=== PATIENT | female | born 1980 | race African-American/Black ===

== ENCOUNTER 2017-11-14 20:03 | Emergency (ER) | payer SELFPAY ==
[~2017-11-14] VITALS: Ht 165.1 cm; Wt 97.5 kg
[2017-11-14] MEDS ORDERED: NAPROXEN 500 MG TABLET PO STA (20:33)
[2017-11-14 20:34] VITALS: BP 152/90
[2017-11-14] MEDS ORDERED: HYDROcodone/APAP 5/325MG 1 TAB TABLET PO ONE (20:45)
[2017-11-14] MEDS ORDERED: DICL50TA4 PO (21:10)
--- NOTE | 2017-11-14 21:10 | PHYS DOC ---
Past Medical History Past Medical History: No Pertinent History Past Surgical History: No Surgical History Alcohol Use: None Drug Use: None Adult General Chief Complaint Chief Complaint: WRIST PAIN HPI HPI Patient is a 37 year old female with no significant medical history who presents today complaining of 7 out of 10 intermittent throbbing left wrist pain that began today while breaking ridding her bike. Denies any fall. Review of Systems Review of Systems Constitutional: Denies fever or chills [] Musculoskeletal: Reports left wrist pain Integument: Denies rash or skin lesions [] Neurologic: Denies headache, focal weakness or sensory changes [] All other systems were reviewed and found to be within normal limits, except as documented in this note. Current Medications Current Medications Current Medications Medications (Trade) Dose Ordered Sig/Verónica Start Time Stop Time Status Last Admin Dose Admin Acetaminophen/ Hydrocodone Bitart (Lortab 5/325) 2 tab 1X ONCE 11/14/17 20:45 11/14/17 20:46 DC 11/14/17 20:44 2 TAB Naproxen (Naprosyn) 500 mg 1X STAT 11/14/17 20:33 11/14/17 20:37 DC 11/14/17 20:43 500 MG Allergies Allergies Allergies Coded Allergies Type Severity Reaction Last Updated Verified No Known Drug Allergies 11/14/17 No Physical Exam Physical Exam Constitutional: Well developed, well nourished, no acute distress, non-toxic appearance. [] Skin: Warm, dry, no erythema, no rash. [] Back: No tenderness, no CVA tenderness. [] Extremities: Left wrist with no obvious deformity. Diffuse tenderness throughout the wrist, no scaphoid tenderness. Full range of motion to the left wrist and fingers. Adequate radial medial and ulnar sensation to the left upper extremity. +2 left radial pulse. Cap refill less than 2 seconds the left fingers. Neurologic: Alert and oriented X 3, normal motor function, normal sensory function, no focal deficits noted. [] Psychologic: Affect normal, judgement normal, mood normal. [] Current Patient Data Vital Signs Vital Signs Date Time Temp Pulse Resp B/P (MAP) Pulse Ox O2 Delivery O2 Flow Rate FiO2 11/14/17 20:34 98.2 77 18 152/90 (110) 100 Room Air 98.2 EKG EKG [] Radiology/Procedures Radiology/Procedures [] Course & Med Decision Making Course & Med Decision Making Pertinent Labs and Imaging studies reviewed. (See chart for details) Patient is in the ED with left wrist pain that began one riding her bike. Left wrist x-rays interpreted by Dr. Sanchez were negative for any acute findings.Patient was placed in a velcro splint by the ED RN ice elevation encouraged. Follow-up with orthopedic doctor in one week if symptoms continue. Diclofenac for pain. Dragon Disclaimer Dragon Disclaimer This electronic medical record was generated, in whole or in part, using a voice recognition dictation system. Departure Departure Impression: Primary Impression: Left wrist sprain Disposition: HOME, SELF-CARE Condition: STABLE Referrals: NO PCP (PCP) GEOVANI GUERRERO II, MD Follow-up in one week Patient Instructions: Wrist Sprain with [facility] Additional Instructions: You were seen with left wrist sprain. Ice elevate the extremity. Wear the provided Velcro splint as needed and tolerated. Follow-up with the orthopedic doctor in one week if symptoms continue. Take the prescribed medications as needed for pain. Scripts Diclofenac Sodium (DICLOFENAC SODIUM) 50 Mg Tablet.dr 1 TAB PO BID, #30 TAB 0 Refills Prov: RYLIE EDWARD APRN 11/14/17 Problem Qualifiers Primary Impression: Left wrist sprain Encounter type: initial encounter Qualified Codes: S63.502A - Unspecified sprain of left wrist, initial encounter RYLIE EDWARD APRN Nov 14, 2017 21:10
--- NOTE | 2017-11-15 00:07 | RAD ---
Three-view left wrist radiographs 11/14/2017 CLINICAL HISTORY: Injury to left wrist. Pain. PA, lateral and oblique digital radiographs of the left wrist were obtained. No fracture or dislocation of the left wrist is seen. No radiopaque foreign body is noted. IMPRESSION: No fracture or dislocation of the left wrist is seen. Electronically signed by: Jon Zhao MD (11/15/2017 12:03 AM) [facility]
== END 2017-11-14 21:20 | disposition home or self-care (01) ==
LOC: ER 20:03
DX: S63.502A Unspecified sprain of left wrist, initial encounter (principal); X58.XXXA Exposure to other specified factors, initial encounter; Y93.55 Activity, bike riding; Y92.89 Other specified places as the place of occurrence of the external cause; Y99.8 Other external cause status
CPT/HCPCS: 29125; 73110; 99284

== ENCOUNTER → 2017-12-11 | Outpatient (CLI) | payer MEDICARE, OTHER ==
[2017-11-14 20:34] VITALS: BP 152/90
[~2017-12-11] MED LIST: DICL50TA4 PO
--- NOTE | 2017-12-11 15:09 | KCIC ---
MR of the left wrist Indication: Acute left wrist pain, injury on November 17, pain medial and lateral. Comparison: None are available Technique: Standard multiplanar sequences are obtained. FINDINGS: Artifact: No significant image degradation Triangular fibrocartilage: Intact Distal radioulnar alignment: Intact Extensor carpi ulnaris tendon: Intact, no significant dislocation. Other extensor compartments: Intact Flexor tendons: Intact Median nerve: Unremarkable Scapholunate ligament: No evidence of tear Lunotriquetral ligament: No evidence of a tear. Carpal bone alignment: Within normal limits. Fluid: No significant effusion. Joints: No advanced DJD. Bones: No lesion or acute fracture Soft tissues: Unremarkable IMPRESSION: No evidence of internal derangement or acute abnormality. Electronically signed by: Ben Dumont MD (12/11/2017 3:07 PM) [facility]
== END | disposition home or self-care (01) ==
LOC: KCIC MRI 13:10
PROVIDERS: ATTEND Orthopaedic Surgery
DX: M25.532 Pain in left wrist (principal)
CPT/HCPCS: 73221

== ENCOUNTER 2018-07-21 20:13 | Emergency (ER) | payer MEDICARE, OTHER ==
[~2018-07-21] VITALS: Ht 165.1 cm; Wt 96.2 kg
[2018-07-21 20:31] VITALS: BP 139/88
[2018-07-21] MEDS ORDERED: DIPHTH,PERTUSS(ACELL),TET TOX 0.5 ML DISP.SYRIN. VAX IM ONE (22:00)
[2018-07-21] MEDS ORDERED: LIDOCAINE WITH 8.4% SOD BICARB 3 ML DISP.SYRIN. INJ ONE (22:00)
--- NOTE | 2018-07-21 22:32 | PHYS DOC ---
Past Medical History Past Medical History: No Pertinent History Past Surgical History: Hysterectomy Alcohol Use: None Drug Use: None Adult General Chief Complaint Chief Complaint: LACERATION/AVULSION HPI HPI Patient is a 38 year old female who presents with left hand laceration, patient is right-handed was cutting chicken when she cut himself. Review of Systems Review of Systems Constitutional: Denies fever or chills [] Musculoskeletal: Denies back pain or joint pain [] Integument: Reports left hand laceration Neurologic: Denies headache, focal weakness or sensory changes [] All other systems were reviewed and found to be within normal limits, except as documented in this note. Current Medications Current Medications Current Medications Medications (Trade) Dose Ordered Sig/Verónica Start Time Stop Time Status Last Admin Dose Admin Diphtheria/ Tetanus/Acell Pertussis (Boostrix) 0.5 ml ONCE ONCE 07/21/18 22:00 07/21/18 22:01 DC 07/21/18 21:55 0.5 ML Lidocaine/Sodium Bicarbonate (Buffered Lidocaine 1%) 3 ml 1X ONCE 07/21/18 22:00 07/21/18 22:01 DC 07/21/18 21:57 3 ML Allergies Allergies Allergies Coded Allergies Type Severity Reaction Last Updated Verified No Known Drug Allergies 11/14/17 No Physical Exam Physical Exam Constitutional: Well developed, well nourished, no acute distress, non-toxic appearance. [] Skin: Webspace between the index finger and thumb with a laceration appr oximately 2 cm long. There is no obvious tendon involvement. Full range of motion to the left hand and fingers. Adequate radial, medial, ulnar sensation to the left hand. +2 left radial pulse. Cap refill less than 2 seconds the left fingers. Back: No tenderness, no CVA tenderness. [] Extremities: No tenderness, no cyanosis, no clubbing, ROM intact, no edema. [] Neurologic: Alert and oriented X 3, normal motor function, normal sensory function, no focal deficits noted. [] Psychologic: Affect normal, judgement normal, mood normal. [] Current Patient Data Vital Signs Vital Signs Date Time Temp Pulse Resp B/P (MAP) Pulse Ox O2 Delivery O2 Flow Rate FiO2 07/21/18 20:31 98.8 84 16 139/88 (105) 100 Room Air 98.8 EKG EKG [] Radiology/Procedures Radiology/Procedures Laceration/Wound Repair Wound Location: Left hand Wound's Depth, Shape: Vertical Wound Length (cm): Approximately 2 cm Wound Explored: clean Irrigated w/ Saline (ccs): 250 Betadine Prep?: Yes Anesthesia: 1% buffered lidocaine Volume Anesthetic (ccs): 3 mL Wound Repaired With: Vicryl Suture Size/Type: 4.0/interrupted sutures Number of Sutures: 4 Progress : Wound was covered with Nonstick dressing Course & Med Decision Making Course & Med Decision Making Pertinent Labs and Imaging studies reviewed. (See chart for details) This is a 38-year-old female patient presenting to the ED today with left hand laceration that was closed by me as noted in procedures. Wound care instructions and return precautions. Tetanus updated Dragon Disclaimer Dragon Disclaimer This electronic medical record was generated, in whole or in part, using a voice recognition dictation system. Departure Departure Impression: Primary Impression: Laceration of left hand Disposition: HOME, SELF-CARE Condition: STABLE Referrals: NO PCP (PCP) Follow-up with your doctor in 1-2 weeks as needed Patient Instructions: Laceration Care, Adult Additional Instructions: You have left hand laceration that was closed with dissolvable sutures, they will follow from there on. You can wash her hands starting tomorrow. Apply Jean sporin to the area twice a day. You can take [id number] pain relievers as needed. Monitor the area for any signs of infection including but not limited to increased redness, warmth, yellow drainage from the area and return to the ED if they occur otherwise follow-up with your own doctor as needed. Problem Qualifiers Primary Impression: Laceration of left hand Encounter type: initial encounter Foreign body presence: without foreign body Qualified Codes: S61.412A - Laceration without foreign body of left hand, initial encounter RYLIE EDWARD [employer] Jul 21, 2018 22:32
== END 2018-07-21 22:45 | disposition home or self-care (01) ==
LOC: ER 20:13
DX: S61.412A Laceration without foreign body of left hand, initial encounter (principal); W26.0XXA Contact with knife, initial encounter; Y93.G3 Activity, cooking and baking; Y92.89 Other specified places as the place of occurrence of the external cause; Y99.8 Other external cause status
CPT/HCPCS: 12001; 90471; 90715; 99283-25